=== PATIENT | male | born 2000 ===

== ENCOUNTER 2021-07-16 03:41 | Emergency (ER) | payer SELFPAY ==
[~2021-07-16] VITALS: Ht 152.4 cm; Wt 78.4 kg
[2021-07-16 03:54] VITALS: BP 144/69; PULSE 95; TEMP 97.5
== END 2021-07-16 06:15 | disposition home or self-care (01) ==
LOC: COL.ER 03:41
DX: Z20.2 Contact with and (suspected) exposure to infections with a predominantly sexual mode of transmission (principal); Z28.311 Partially vaccinated for COVID-19